=== PATIENT | male | born 1960 | race Caucasian/White ===

== ENCOUNTER 2023-10-17 10:32 | Outpatient (CLI) | payer MEDICARE, OTHER ==
--- NOTE | 2023-10-17 11:23 | Sleep Patient Instructions ---
Sleep Center Visit Summary - Patient Visit Information Reason for Visit: Initial consultation - Patient Instructions Additional Instructions: You will continue with CPAP therapy with pressure set at 15-19 cmH2O. A supply prescription will be sent to the DME supplier and they should reach out to you to get you set up with supplies. We encourage you to continue to try to lose weight. Please follow up with the sleep care office in 1 year. - Clinic Information Contact: [facility] [address] [place] [address] [email or web address] T: [phone]
--- NOTE | 2023-10-17 11:26 | SLEEP CARE CONSULTATION ---
Information from patient questionnaire entered by Jody Allen. I have reviewed and concur with the information entered by Jody Allen. This document represents the service I personally performed and the decisions made by me, Germaine Julio ARNP. History of Present Illness Service Date and Time: 10/17/2023 1032 Reason for Visit: New patient, Previously diagnosed sleep apnea, sleep apnea on CPAP therapy, Other (Update supplies) Chief Complaint: reports: Other (Update supplies, no doctor for 2 years) Usual bedtime: 10:30-11:00 PM Time it takes to fall asleep: 15 min Snores at night: No (Not with CPAP) Observed to quit breathing while asleep: Yes Sleeps alone due to snoring: Yes Number of times waking at night: 0-1 Reasons for waking at night: reports: Bathroom Toss, Turn, or Twitch while sleeping: Yes Recalls having dreams: Yes Usually gets out of bed at: 7:00 AM Feels refreshed in the morning: Yes Morning headache: Yes Sleepy or fatigued during the day: No Ever fallen asleep while driving: No Takes day naps: Yes Dreams during day naps: No Prior sleep studies: Yes Year and Where: 2018 [facility] Type of Sleep Study: Polysomnography (Split night) Additional HPI information: GEORGE MAYER was previously diagnosed to have very severe, AHI 71.7, obstructive sleep apnea-hypopnea syndrome as seen in [facility] sleep study dated 01/16/2019 and comes in today to establish care for CPAP therapy. - Parasomnia Symptoms Ever been unable to move upon waking from sleep: No Walks in sleep: No Talks in sleep: No Ever acted out dreams in sleep: No Ever felt weak in the knees when startled or emotional: No Bothered by creepy, crawly, restless sensations in legs: No Problems with memory or concentration: No CPAP Compliance Data - Data Reviewed with Patient Average duration of nightly device use: 6 h 5 min Compliance rate %: 85.9 (171/185 days used) Current pressure setting (cmH2O): 15-19 Humidity settin Heated hose settin Average residual AHI: 1.9 Average large leak: 1 hr 17 min Compliance data discussion: He has a Dreamstation that has been re-certified. He has not gotten supplies in couple years. He is using a nasal cushion mask, may be made by [employer], ?[employer]. He is just cleaning mask but needs supplies to change mask cushion. Subjective Missed days of use due to: reports: travel Patient concerns: reports: dry mouth, nose, throat (dry mouth). denies: aerophagia, mask discomfort, air blowing in eyes, mask leak noise, condensation in mask/hose, nasal congestion, epistaxis Observed to snore while using device: No Current pressure setting perceived as: comfortable On therapy, patient: reports: sleeping better, awakening more refreshed, being more awake and alert during the day, more rested overall. denies: drowsiness while driving Initial [place] Sleepiness Scale score: 10 (in 2022) Past Medical History Past Medical History: reports: Hypertension, Diabetes, Arthritis, Coronary Heart Disease ([place] 2019; 3 stents placed), Hypothyroidism, Other Social History The patient is retired. Patient is single and lives in [place]. Have you smoked in the past 12 months: No Alcohol use: Yes Alcohol amount and frequency: Glass of wine - not often Caffeine use: Yes Caffeine amount and frequency: 12-16 ounce - one or two a month Family History Family history of sleep disordered breathing: Yes Family Hx Sleep Apnea: Sibling: Snoring Allergies and Home Medications Known drug allergies: No Drug allergies reviewed: Yes Home medication list reviewed: Yes Allergy and home medication list: Medications: Levothyroxine Metoprolol Atorvastatin Eliquis Lisinopril Ditilazem, new Review of Systems Weight gain over past 5 years: 25 Cardiovascular: reports: high blood pressure, palpitations, irregular heart rate or pulse Gastrointestinal: denies: heartburn Neurological: denies: headaches Ear/Nose/Throat: denies: tonsillectomy, wisdom teeth removed Musculoskeletal: reports: joint pain (/stiffness) Physical Exam Vital signs obtained and entered by: Germaine Ferrari NP Blood Pressure: 134/83 Cuff size: wrist (right) Heart Rate: 64 O2 Saturation: 97 Height: 6 ft 2.75 in Weight: 304 lb Body Mass Index: 38.2 BMI Classification: Obese Heart: irregular rhythm Lungs: clear bilaterally Impression and Plan 1. Obstructive Sleep Apnea-Hypopnea Syndrome, very severe, with good treatment compliance and good apnea control. On CPAP therapy, the patient has better sleep quality and is more rested overall. Patient has significant improvement of their sleep apnea and is satisfied with current CPAP therapy. He does need a DME supplier for his CPAP supplies. He has not been getting any supplies for 2 y ears. I will have my flow coordinator inform of DME options. A DWO prescription will then be made. Patient advised to contact this office if further supply problems. Patient denies problems with oral dryness, nasal congestion, epistaxis, skin irritation or aerophagia. Patient's apnea severity and rationale for treatment to reduce apnea, improve sleep quality and reduce cardiovascular and cerebrovascular events was reviewed. I also reviewed the benefit of consistent device use of CPAP for hypertension, cardiac disease and diabetes. 2. Obesity, unspecified. Currently patients BMI is 38.2. Obesity increases the risk of apnea, CPAP pressure requirements and overall health risks especially cardiovascular and diabetes. Thus patient is advised to lose weight. * Continue auto CPAP pressure at 15-19 cmH2O * Transfer DME * Update supply prescription * Notify me if snoring with mask or feeling that the pressure is too much or too little * Attempt to lose weight * Call this office if any problems using CPAP * Return for follow up in 12 months, or sooner if concerns arise Counseling Topics: Spare mask, Weight loss health impact Prescriptions: Device supplies Follow up with Sleep Care in: 1 year Visit Type: In Office Time Spent with Patient (minutes): 33 Provider Statement: I spent 100% of the Face to Face Visit with the patient with greater than 50% spent counseling the patient and coordination of care.
[2023-10-17 11:35] VITALS: BP 134/83; O2SAT 97
== END 2023-10-17 10:33 | disposition home or self-care (01) ==
LOC: SC 10:32
PROVIDERS: ATTEND Nurse Practitioner Family
DX: G47.33 Obstructive sleep apnea (adult) (pediatric) (principal); E66.9 Obesity, unspecified; Z68.38 Body mass index [BMI] 38.0-38.9, adult
CPT/HCPCS: 99203; G0463; 99212